=== PATIENT | male | born 1975 | race Hispanic/Latino ===

== ENCOUNTER 2019-02-20 15:34 | Emergency (ER) | payer OTHER ==
[2019-02-20 15:43] VITALS: BP 157/86
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
== END 2019-02-20 17:48 | disposition home or self-care (01) ==
LOC: ED 15:34
DX: M54.5 Low back pain (principal); M25.562 Pain in left knee; I10 Essential (primary) hypertension; Z90.49 Acquired absence of other specified parts of digestive tract; Z88.8 Allergy status to other drugs, medicaments and biological substances
CPT/HCPCS: 72100; 99283